=== PATIENT | male | born 1970 | race Caucasian/White ===

== ENCOUNTER 2019-07-25 12:16 | Emergency (ER) | payer OTHER, SELFPAY ==
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
[2019-07-25 12:20] VITALS: BP 136/97; PULSE 87; TEMP 37.1; O2SAT 99
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
[2019-07-25] MEDS: Omnipaque 350 MG/ML 100 ML BTL IV (12:40)
[2019-07-25 12:47] LABS: Abs Immature Grans 0.04 k/cumm (0.0-0.09); Absolute Basophil Count 0.02 k/cumm (0.0-0.2); Absolute Lymphocyte Count 3.09 k/cumm (1.2-3.4); Absolute Monocyte Count 0.61 k/cumm (0.11-0.7); Absolute Neutrophil Count 8.27 k/cumm (1.2-6.7); Basophils % 0.2; Eosinophils % 1.6; HCT 46.6 % (40.0-50.0); HGB 16.6 g/dL (13.5-17.5); Immature Grans % 0.3 %; Lymphocytes % 25.3; Mean Corp. HGB Concentration 35.6 g/dL (32.0-36.0); Mean Corpuscular Hemoglobin 31.4 pg (27.0-33.0); Mean Corpuscular Volume 88.3 fL (80-95); Mean Platelet Volume 8.9 fL (8.0-11.0); Neutrophils % 67.6; Platelet Count 392 x1000/uL (130-400); RBC 5.28 m/cumm (4.50-6.00); White Blood Cell Count 12.23 k/cumm (4.4-10.8)
[2019-07-25 12:54] LABS: ALT 25 U/L (16-63); AST 15 U/L (15-37); Albumin 4.4 g/dL (3.4-5.0); Alkaline Phosphatase 71 U/L (46-116); Anion Gap 10.7 mmol/L (3-11); BUN 9 mg/dL (7-18); Bilirubin, Total 0.7 mg/dL (0.2-1.0); CO2 23.3 mmol/L (21.0-32.0); CREATININE 0.81 mg/dL (0.70-1.30); Calcium 9.4 mg/dL (8.5-10.1); Chloride 105 mmol/L (98-107); ETHANOL BLOOD < 3.0 mg/dL (<3); Glucose 112 mg/dL (74-106); Magnesium 1.8 mg/dL (1.8-2.4); Sodium 139 mmol/L (136-145); Total Protein 7.7 g/dL (6.4-8.2)
[2019-07-25 13:10] LABS: Troponin I < 0.05 ng/Ml (<0.06)
[2019-07-25] MEDS: Normal Saline 1,000 ML 1000 ML IV (13:15)
[2019-07-25] MEDS: Normal Saline - Diluent 50 ML VIAL IV (13:17)
[2019-07-25] MEDS: Normal Saline Flush 10 ML SYR IVP (13:43)
[2019-07-25 14:01] LABS: Bilirubin Negative (Negative); Blood Negative (Negative); Clarity Clear (Clear); Glucose Negative (Negative); Ketones Negative (Negative); Leukocyte Esterase Negative (Negative); Nitrite Negative (Negative); Specific Gravity <= 1.005 (1.005-1.025); Urobilinogen 0.2 EU/dL (Up TO 0.2); pH 5.5 (5-8)
[2019-07-25 14:25] LABS: *AMPHETAMINES SCREEN URINE Negative (Negative); *BARBITURATES SCREEN URINE Negative (Negative); *BENZODIAZEPINES SCREEN URINE Negative (Negative); Cannabinoids THC POSITIVE (Negative); Cocaine Screen,Urine Negative (Negative); METHADONE URINE SCREEN Negative (Negative); OPIATES URINE SCREEN Negative (Negative)
[2019-07-25 14:28] LABS: Tricyclic Antidepressants Negative (Negative)
[2019-07-25 14:32] VITALS: BP 145/94; PULSE 78; RESP 14; O2SAT 99
== END 2019-07-25 14:38 | disposition home or self-care (01) ==
PROVIDERS: Emergency Provider Registered Nurse Emergency
DX: S01.111A Laceration without foreign body of right eyelid and periocular area, initial encounter (principal); S01.21XA Laceration without foreign body of nose, initial encounter; S01.01XA Laceration without foreign body of scalp, initial encounter; V89.2XXA Person injured in unspecified motor-vehicle accident, traffic, initial encounter
CPT/HCPCS: 12013; 74177; 80053; 80307; 96360; 99285; 70450; 71260; 72125; 80320; 81003; 83735; 84484; 85025; 99284; J3490; L0172

== ENCOUNTER 2019-12-11 12:50 | Emergency (ER) | payer OTHER, SELFPAY ==
[2019-12-11] VITALS (23 sets, daily range): BP systolic 110–127; BP diastolic 61–80; PULSE 62–88; RESP 14–22; TEMP 36.7; O2SAT 97–100
--- NOTE | 2019-12-11 13:00 | RT.EKG_ITS ---
APPROVED REPORT Exam: Resting ECG Patient Location: E HR:71 bpm ECG Measurements Heart Rate 71 AXIS MS 156 P 79 QRSd 94 QRS 72 QT 385 T 39 QTc 419 Conclusion Sinus rhythm...normal P axis, V-rate 60- 99
--- NOTE | 2019-12-11 13:30 | DI.RAD_ITS ---
EXAM: XR HIP LT COMPLETE AP PELVIS INDICATION: left hip pain, no trauma. COMPARISON: No exams were available for comparison TECHNIQUE: 2D digital imaging was performed. FINDINGS: No fracture or dislocation is seen. There are no significant degenerative changes. The SI joints a nd pubic symphysis are unremarkable. IMPRESSION: Negative pelvis and left hip. DATA REPOSITORY: RADIATION DOSE DELIVERED:
--- NOTE | 2019-12-11 13:30 | DI.RAD_ITS ---
EXAM: XR CHEST 2V PA LATERAL CLINICAL HISTORY: weight loss, chronic smoker, presyncope TECHNIQUE: 2D digital imaging was performed. COMPARISON: CR CHEST 2 VIEWS PA,LAT from 04/29/2012 FINDINGS: MEDIASTINUM: Normal. HEART: Normal. PULMONARY VASCULATURE: Normal. LUNGS: Clear. PLEURAL SPACE: No pleural effusion or pneumothorax. BONE:Normal. OTHER FINDINGS:Normal. IMPRESSION: No acute pulmonary findings. DATA REPOSITORY: RADIATION DOSE DELIVERED:
[2019-12-11] MEDS: Lactated Ringers 1,000 ML 1000 ML IV (13:31)
[2019-12-11 13:34] LABS: Abs Immature Grans 0.02 10^3/uL (0.0-0.06); Absolute Basophil Count 0.04 10^3/uL (0.0-0.2); Absolute Eosinophil Count 0.05 10^3/uL (0.0-0.7); Absolute Lymphocyte Count 1.49 10^3/uL (1.2-3.4); Absolute Monocyte Count 0.46 10^3/uL (0.1-0.8); Absolute Neutrophil Count 7.51 10^3/uL (1.2-6.7); Basophils % 0.4; Eosinophils % 0.5; HCT 42.6 % (40.0-50.0); HGB 14.3 g/dL (13.5-17.5); Immature Grans % 0.2; Lymphocytes % 15.6; MCH 30.2 pg (27.0-33.0); MCHC 33.6 % (32.0-36.0); MCV 89.9 fL (80-95); Monocytes % 4.8; Neutrophils % 78.5; Nucleated RBC 0 %; Platelet Count 348 10^3/uL (130-400); RBC 4.74 10^6/uL (4.36-5.78); RDW 11.9 % (11.8-14.1); WBC 9.57 10^3/uL (4.4-10.8)
[2019-12-11 13:50] LABS: ALT 16 U/L (16-63); AST 11 U/L (15-37); Albumin 3.8 g/dL (3.4-5.0); Alkaline Phosphatase 63 U/L (46-116); Anion Gap 6.2 mmol/L (3-11); BUN 9 mg/dL (7-18); Bilirubin, Total 0.5 mg/dL (0.2-1.0); CO2 26.8 mmol/L (21.0-32.0); CREATININE 0.86 mg/dL (0.70-1.30); Calcium 9.2 mg/dL (8.5-10.1); Chloride 104 mmol/L (98-107); Glucose 107 mg/dL (74-106); Potassium 4.3 mmol/L (3.5-5.1); Sodium 137 mmol/L (136-145); Total Protein 6.7 g/dL (6.4-8.2); Troponin I < 0.05 ng/mL (<0.06)
--- NOTE | 2019-12-11 14:00 | ED.GENADUL_ITS ---
Discharge Plan Disposition Patient Disposition: HOME Condition: Stable Discharge Details Chief Complaint: Dizzy/Sync Clinical Impression: Pre-syncope Primary Care Provider: None,None ED Provider: Rg Coffman Home Meds and New Rx's Prescriptions: No Action No Known Home Meds RF: 0 Discharge Instructions Instructions: Near Syncope (ED) Additional Instructions: Please drink plenty of fluids to stay hydrated. Please allow for plenty of rest. No exertional activities until cleared. No operating heavy machinery or driving until cleared to do so. Please contact your primary care physician to arrange follow-up. Call on Thursday. Return to the ER for any worsening or new concerning symptoms. Medical Decision Making 1400??49-year-old male, chronic smoker, here after episode of dizziness and presyncope that occurred prior to arrival. Now resolved. Patient also with unintentional 30 pound weight loss over the past few months. He also has had some night sweats and intermittent pain in his left hip. Patient is now asymptomatic and hemodynamically stable. Screening ECG was reviewed interpreted by me: Sinus rhythm 71 bpm, normal axis, no STEMI, nondiagnostic. Plan to check labs to assess for electrolyte abnormalities. Consider malignancy given chronic smoking history and symptoms. Will obtain screening chest x-ray and x-ray of the pelvis and left hip. 1000??patient remains asymptomatic. Ambulated without difficulty or symptoms. Labs reviewed and nondiagnostic. Chest x-ray was reviewed and interpreted by radiology: No acute cardiopulmonary disease. X-ray of the left hip and pelvis reviewed and interpreted by radiology: No acute fracture dislocation. Medical screening exam was performed today. Plan will be for discharge with outpatient follow-up with PCP. Patient understands importance of timely follow-up and to return should have any worsening or new concerning symptoms. HPI General Mode of arrival: ambulatory . Date/Time Provider Initiated Documentation: 12/11/19 13:19 . Limitations to Documentation: no limitations . Information obtained by: patient . HPI Narrative: 49-year-old male presents with chief complaint of lightheadedness. Patient notes sudden onset of near syncope that occurred today prior to arrival. Patient notes he laid down on the floor and continue to have symptoms. He then went to have a bowel movement and noted continued symptoms during that time. Symptoms severe with no modifiers. He has no associated shortness of breath, chest pain, abdominal pain, palpitations, or fever. He does note though an unintentional 30 pound weight loss over the past few months. Patient is a chronic smoker and has been smoking about a pack a day for 30+ years. He is now feeling better with no lightheadedness. Related Data Home Medications Medication Instructions Recorded Confirmed Unknown [No Known Home Meds] 07/25/19 12/11/19 Allergies Allergy/AdvReac Type Severity Reaction Status Date / Time No Known Allergies Allergy Unverified 12/11/19 12:59 General Stated Complaint: Dizzy/Sync PHILIPP: 3 Review of Systems All systems reviewed & are unremarkable except as noted in HPI and below Constitutional Constitutional: Denies fever(s), Denies headache(s), Reports night sweats, Reports weakness (Generalized) and Reports weight loss ENT Ears, Nose, Mouth, and Throat: Denies headache(s) Cardiovascular Cardiovascular: Denies dyspnea Respiratory Respiratory: Denies cough and Denies dyspnea Musculoskeletal Musculoskeletal: Reports arthralgias (Left hip intermittent) Neurologic Neurologic: Denies headache(s) and Reports weakness (Generalized) [facility] Medical History Smoker (Acute) Social History Smoking/Tobacco Use Status: Current every day Tobacco Type: cigarettes Alcohol Intake: current Alcohol Intake frequency: a few times a week Alcohol type: hard liquor Drug use: Occasionally Substance use type: marijuana Do you feel safe at home: Yes Do you feel safe in your relationship?: Yes Exam Const General: cooperative and no acute distress HENMT Head: normocephalic and atraumatic Mouth: moist mucous membranes Eyes Sclera: normal sclerae Neck Neck: no lymphadenopathy, trachea midline and supple Resp Auscultation: clear to auscultation bilaterally, no rales, no rhonchi and no wheezes Cardio Rate: regular rate and not tachycardic Rhythm: regular rhythm GI Palpation: soft, not firm, no guarding, no masses, not rigid and nontender Back/Spine/Pelvis Back: No erythema Cervical Spine: No cervical spinal tenderness Thoracic/Lumbar Spine: No thoracic spinal tenderness and No lumbar spinal tenderness Skin General skin exam: no rashes or lesions noted Neuro General: patient alert, patient awake and tone normal Extrem General: no edema Psych Appearance: grossly normal Mental Status: mental status grossly normal Course Vital Signs Vital signs: Vital Signs Temperature 36.7 C 12/11/19 12:54 Pulse 72 12/11/19 12:54 Respiratory Rate 20 12/11/19 12:54 Blood Pressure 116/76 12/11/19 12:54 Pulse Oximetry 99 12/11/19 12:54 Temperature 36.7 C 12/11/19 12:54 Temperature Source Skin 12/11/19 12:54 Pulse 68 12/11/19 13:00 Pulse 76 12/11/19 13:10 Respiratory Rate 16 12/11/19 13:10 Respiratory Effort Non-Labored 12/11/19 13:00 Respiratory Depth Normal 12/11/19 13:00 Respiratory Pattern Normal 12/11/19 13:00 Blood Pressure 112/73 12/11/19 13:00 Blood Pressure Mean 82 12/11/19 13:00 Blood Pressure Position Sitting 12/11/19 12:54 Pulse Oximetry 99 12/11/19 13:01 Oxygen Delivery Method Room Air 12/11/19 12:54 Oxygen Flow Rate 0 12/11/19 12:54 Pain Level 0 12/11/19 12:54 Lab/Test Results Lab/Test Results: Laboratory Tests Range/Units 12/11/19 12/11/19 13:25 13:25 WBC (4.4-10.8) 10^3/uL 9.57 RBC (4.36-5.78) 10^6/uL 4.74 Hgb (13.5-17.5) g/dL 14.3 Hct (40.0-50.0) % 42.6 MCV (80-95) fL 89.9 MCH (27.0-33.0) pg 30.2 MCHC (32.0-36.0) % 33.6 RDW (11.8-14.1) % 11.9 Plt Count (130-400) 10^3/uL 348 MPV (8.0-11.0) fL 9.0 Immature Gran % 0.2 Neutrophils % 78.5 Lymphocytes % 15.6 Monocytes % 4.8 Eosinophils % 0.5 Basophils % 0.4 Nucleated RBC % % 0 Absolute Neutrophils (1.2-6.7) 10^3/uL 7.51 H Absolute Lymphocytes (1.2-3.4) 10^3/uL 1.49 Absolute Monocytes (0.1-0.8) 10^3/uL 0.46 Absolute Eosinophils (0.0-0.7) 10^3/uL 0.05 Absolute Basophils (0.0-0.2) 10^3/uL 0.04 Sodium (136-145) mmol/L 137 Potassium (3.5-5.1) mmol/L 4.3 Chloride (98-107) mmol/L 104 Carbon Dioxide (21.0-32.0) mmol/L 26.8 Anion Gap (3-11) mmol/L 6.2 BUN (7-18) mg/dL 9 Creatinine (0.70-1.30) mg/dL 0.86 Estimated GFR/1.73 m2 (mL/min/1.73m2) >= 60.00 Glucose (74-106) mg/dL 107 H Calcium (8.5-10.1) mg/dL 9.2 Total Bilirubin (0.2-1.0) mg/dL 0.5 AST (15-37) U/L 11 L ALT (16-63) U/L 16 Alkaline Phosphatase (46-116) U/L 63 Troponin I (<0.06) ng/mL < 0.05 Total Protein (6.4-8.2) g/dL 6.7 Albumin (3.4-5.0) g/dL 3.8
--- NOTE | 2019-12-11 14:18 | DI.VRAD_ITS ---
PROCEDURE INFORMATION: Exam: XR Chest, 2 Views Exam date and time: 12/11/2019 2:03 PM Age: 49 years old Clinical indication: Other: Dizzy spell. TECHNIQUE: Imaging protocol: XR of the chest Views: 2 views. COMPARISON: CT CHEST/ABD/PEL W 07/25/2019 12:49 PM FINDINGS: Lungs: There is a lucency in right apical lung which is correlated with bulla on previous CT exam. No pneumothorax. There is no pleural effusion. There is hyperinflation of lungs which is non-specific and could be related to patient's deep inhalation. Pleural space: See Lungs finding. Heart/Mediastinum: Unremarkable. No cardiomegaly. Bones/joints: Unremarkable. IMPRESSION: No acute cardiopulmonary abnormality. Dictated and Authenticated by: Santos Acuna MD. Ordering:LAUREN Diez MD
--- NOTE | 2019-12-11 14:21 | DI.VRAD_ITS ---
PROCEDURE INFORMATION: Exam: XR Left Hip with Pelvis when Performed Exam date and time: 12/11/2019 2:09 PM Age: 49 years old Clinical indication: Hip pain; Left hip TECHNIQUE: Imaging protocol: XR Left hip with pelvis when performed. Views: 2 or 3 views. COMPARISON: CT CHEST/ABD/PEL W 07/25/2019 12:49 PM FINDINGS: Bones/joints: No acute fracture or dislocation. There is mild facet osteoarthrosis in left L5-S1 . Soft tissues: Unremarkable. IMPRESSION: No acute fracture or dislocation. Dictated and Authenticated by: Santos Acuna MD. Ordering:LAUREN Diez MD
--- NOTE | 2019-12-11 15:04 | NUR.NOTE ---
Nursing Note: Referral to establish care and follow up given to Care Management. Harriett Louise
== END 2019-12-11 15:05 | disposition home or self-care (01) ==
PROVIDERS: Emergency Provider Student in an Organized Health Care Education/Training Program
DX: R55 Syncope and collapse (principal); M25.552 Pain in left hip; R63.4 Abnormal weight loss
CPT/HCPCS: 80053; 93005; 96360; 99284; 71046; 73502; 84484; 85025; 93010

== ENCOUNTER 2020-12-19 15:25 | Emergency (ER) | payer SELFPAY | END 2020-12-19 16:49 | PROVIDERS: Emergency Provider Physician Assistant; PCP Internal Medicine | DX: Z53.21 Procedure and treatment not carried out due to patient leaving prior to being seen by health care provider (principal) ==

== ENCOUNTER 2024-12-19 08:19 | Emergency (ER) | payer MEDICAID, SELFPAY ==
[2024-12-19 08:23] VITALS: BP 175/119; PULSE 89; RESP 20; TEMP 36.4; O2SAT 99
--- NOTE | 2024-12-19 08:36 | DI.CT_ITS ---
Exam(s) CT LOWER EXTREMITY RT W EXAM: CT LOWER EXTREMITY RT W CLINICAL HISTORY: groing pain down to knee right TECHNIQUE: Imaging Protocol: Axial computed tomography images with coronal and sagittal reformatted images were created and reviewed CONTRAST MATERIAL: Intravenous: Omnipaque 350 Contrast volume:100 mL Oral: No COMPARISON: CR,XR XR HIP LT COMPLETE AP PELVIS from 12/11/2019 FINDINGS: Images were obtained from the right iliac crest to the right knee. PELVIS: Abdominal Aorta: Abdominal portion non-dilated. Atherosclerotic calcification is present. The right lower extremity arterial circulation was evaluated from the level of the aortic bifurcation to just distal to the popliteal artery. No occlusion is present. There is no atherosclerotic calcification distal to the common iliac artery.. Bowel: The visualized bowel is unremarkable. There is no evidence of obstruction or bowel wall thickening. A normal appendix is visualized. Peritoneal Cavity: No ascites, collection or mesenteric inflammatory response. Soft Tissues: The musculature in the right lower extremity appears grossly unremarkable. There is no soft tissue mass or abnormal fluid collection to suggest an abscess. Bladder: Symmetric distention, no gross wall thickening. Reproductive Organs: Unremarkable as visualized. Lymph Nodes: Within normal limits. Bones: Within normal limits. IMPRESSION: Unremarkable examination. If there is continued concern for soft tissue injury/muscle injury, MRI is recommended for evaluation. RADIATION DOSE DELIVERED: 950.89mGy.cm Total DLP 950.89mGy.cm Total DLP DATA REPOSITORY: All CT scans at this facility are submitted to the National Radiology Data Registry (NRDR) Dose Index Registry (DIR) with the [employer] (ACR). RADIATION OPTIMIZATION: All CT scans at this facility use at least one of these dose optimization techniques: automated exposure control; mA and/or kV adjustment per patient size (includes targeted exams where dose is matched to clinical indication); or iterative reconstruction.
--- NOTE | 2024-12-19 08:38 | W.ED.GENAD ---
Discharge Plan Disposition Patient Disposition: Home Discharge Details Clinical Impression: Strain of adductor muscle of thigh Primary Care Provider: Unknown,Unknown ED Provider: Charleen Pedraza Home Meds and New Rx's Prescriptions: New diazepam [Valium] 5 mg tablet 5 mg PO BID PRNQty: 10 0RF Discharge Instructions Instructions: Groin Strain (DC) Additional Instructions: You may use Lidoderm patches [id number], its 12 hours on 12 hours off, please remove the patch we placed in 12 hours You may take the Valium sparingly, do not operate your vehicle while taking this medication Follow-up with physical therapy and orthopedics as needed it sounds like referrals to these 2 specialties have been placed You may apply ice or heat whatever feels better 2 hours after application Take Motrin 600 mg every 8 hours with food and alternate with Tylenol 500 mg every 4 hours do not exceed 3 g of Tylenol daily You may use walker with ambulation I have placed you on a list to establish care with a primary care physician Please return earlier should you have fever, chills, or with any new or worsening complaints Discharge Data Discharge Date/Time-TO BE ENTERED AT DEPARTURE: 12/19/24 12:55 HPI General Date/Time Provider Initiated Documentation: 12/19/24 08:30. HPI Narrative: This 54-year-old male presents with right groin strain. States he has a history of groin strain in the past 5 years ago he had an injury states intermittently he reinjures the area. He denies any difficulty urinating or fevers or chills. He states he was moving some items at work 2 weeks ago when he felt another strain in the right groin and presented to urgent care was referred to Ortho and has been performing supportive care but now pain is in worsening and he presents presents for assessment. History of drug abuse and prefers to avoid opiates as much as possible. Denies any urinary symptoms denies any abdominal pain denies any chest pain or shortness of breath. States the pain is worsened with movement and describes the pain as being in the right groin area radiating down to his knee worse with sitting or extending his leg. Denies any sensation change or paresthesias to his feet. Denies fever or chills. Related Data Home Medications ?Medication ?Instructions ?Recorded ?Confirmed diazepam 5 mg tablet (Valium) 5 mg PO BID PRN #10 tabs 12/19/24 Previous Rx's ?Medication ?Instructions ?Recorded diazepam 5 mg tablet (Valium) 5 mg PO BID PRN #10 tabs 12/19/24 Allergies Allergy/AdvReac Type Severity Reaction Status Date / Time No Known Allergies Allergy Verified 12/19/24 08:27 General Stated Complaint: Orthopedic PHILIPP: 3 Exam Narrative Exam Narrative: 54-year-old male in acute distress, pain in his suprapubic region no testicular tenderness, right adductor muscle tenderness on exam and pain elicited with resisted adduction really with any movement of his hip patient has exacerbated discomfort. His sensation and is intact all 4 extremities, and his distal pulses are intact all 4 extremities. He has no rashes or lesions. He has some tenderness to the right gluteal region over the sacroiliac notch he has no abdominal bruit or pulsatile mass no actual abdominal tenderness. No rebound or guarding no CVA tenderness Course Vital Signs Vital signs: Vital Signs Temperature 36.4 C L 12/19/24 08:23 Pulse 89 12/19/24 08:23 Respiratory Rate 20 12/19/24 08:23 Blood Pressure 175/119 H 12/19/24 08:23 Pulse Oximetry 99 12/19/24 08:23 Temperature 36.4 C L 12/19/24 08:23 Temperature Source Oral 12/19/24 08:23 Pulse 89 12/19/24 08:23 Respiratory Rate 20 12/19/24 08:23 Blood Pressure 175/119 H 12/19/24 08:23 Blood Pressure Position Supine 12/19/24 08:23 Pulse Oximetry 99 12/19/24 08:23 Oxygen Delivery Method Room Air 12/19/24 08:23 Oxygen Flow Rate 0 12/19/24 08:23 Pain Level 10 12/19/24 08:23 Medical Decision Making Results: CT right lower extremity does not show evidence of acute abnormality, diagnostic labs including CBC CMP reassuring, urinalysis with scant blood, patient encouraged to follow-up regarding this in 1 to 2 weeks. I also reviewed patient's CT abdomen pelvis from 2 years prior without any evidence of aneurysmal dilatation of abdominal aorta Assessment and plan: Patient presenting with history of adductor strain now with worsening pain. CT was about utilized for further evaluation given level of pain upon arrival. He was given 10 mg of Valium through the IV 5 mg on 2 separate occasion and patient feels significant improvement in symptoms. He denies any strength or sensation change. CT per radiology interpretation does not show acute abnormality specifically there is no evidence of infectious etiology patient denies any recent illicit substance use. Neurovascularly intact. he is ambulatory with a walker with antalgic although steady gait. He was given a single dose of 4 mg of Decadron IV. He has a referral to both orthopedics and PT which is quite appropriate. Lidoderm patch was applied and patient was given several doses of Valium for home risk of addiction reviewed. He was discharged home in stable condition with stable vitals recheck with primary care physician this week. 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) Smoker (Acute) 1 ppd Medical History Smoker 1 ppd Social History Smoking/Tobacco Use Status: Current every day Tobacco Type: cigarettes Smoking risk assessment performed?: Yes Alcohol Intake: current Alcohol Intake frequency: 0-2 drinks per day Alcohol type: hard liquor Drug use: Occasionally Substance use type: marijuana Household members: spouse Housing: house Number of Children: 3 Communication Needs: None current occupation: unemployed Current gender identity: male What is your relationship status?: Panel score (0-1 are the most socially isolated patients): 1 What type of physical activity do you participate in: none Seatbelt use: sometimes Do you feel safe at home: Yes Do you feel safe in your relationship?: Yes
[2024-12-19] MEDS: ACETAMINOPHEN 500 MG/50 ML BAG 200 MG IVPB (08:50)
[2024-12-19 08:51] LABS: Abs Immature Grans 0.01 10^3/uL (0.0-0.06); HCT 48.6 % (40.0-50.0); HGB 17.1 g/dL (13.5-17.5); Immature Grans % 0.1 %; MCH 31.7 pg (27.0-33.0); MCHC 35.2 % (32.0-36.0); MCV 90 fL (80-95); MPV 8.5 fL (8.0-11.0); Platelet Count 374 10^3/uL (130-400); RBC 5.40 10^6/uL (4.36-5.78); RDW 12.0 % (11.8-14.1); RDW-SD 39.2 fL; WBC 9.93 10^3/uL (4.4-10.8)
[2024-12-19] MEDS: diazePAM 10 MG/2 ML SYR 5 MG IVP ×2 (08:52→10:40)
[2024-12-19 09:15] LABS: Creatine Kinase 147 U/L (39-308)
[2024-12-19 09:18] LABS: ALT 47 U/L (16-63); AST 36 U/L (15-37); Albumin 4.3 g/dL (3.4-5.0); Alkaline Phosphatase 75 U/L (46-116); Anion Gap 15.3 mmol/L (3-11); BUN 13 mg/dL (7-18); Bilirubin, Total 1.6 mg/dL (0.2-1.0); CO2 21.7 mmol/L (21.0-32.0); Calcium 9.5 mg/dL (8.5-10.1); Chloride 104 mmol/L (98-107); Estimated GFR 102.76 (mL/min/1.73m2); Glucose 125 mg/dL (74-106); Potassium 3.8 mmol/L (3.5-5.1); Sodium 141 mmol/L (136-145); Total Protein 7.5 g/dL (6.4-8.2)
[2024-12-19] MEDS: Normal Saline - Diluent 50 ML VIAL IJ (09:59)
[2024-12-19] MEDS: Normal Saline Flush 10 ML SYR IVP (09:59)
[2024-12-19] MEDS: Omnipaque 350 MG/ML 100 ML BTL IJ (09:59)
[2024-12-19] MEDS: Normal Saline 500 ML IV (10:35)
[2024-12-19 11:15] LABS: Glucose Negative (Negative)
[2024-12-19 11:30] LABS: C & S Indicated? No; RBC 0-2 HPF (0-2); WBC Negative HPF (0-5)
[2024-12-19] MEDS: Dexamethasone 4 MG/ML VIAL IVP (12:23)
[2024-12-19] MEDS: Lidocaine 5% Patch 1 PATCH TP (12:24)
[2024-12-19 12:53] VITALS: BP 168/92; PULSE 68; RESP 16; TEMP 36.6; O2SAT 100
== END 2024-12-19 12:55 | disposition home or self-care (01) ==
PROVIDERS: Emergency Provider Physician Assistant
DX: S76.211A Strain of adductor muscle, fascia and tendon of right thigh, initial encounter (principal); F17.210 Nicotine dependence, cigarettes, uncomplicated; X50.9XXA Other and unspecified overexertion or strenuous movements or postures, initial encounter; Y93.89 Activity, other specified; Y92.69 Other specified industrial and construction area as the place of occurrence of the external cause; Y99.0 Civilian activity done for income or pay
CPT/HCPCS: 80053; 82550; 96361; 96365; 96375; 96376; 99285; 73701; 81003; 81015; 85025; J0131; J1100; J3360; J3490

== ENCOUNTER 2024-12-21 14:44 | Emergency (ER) | payer MEDICAID, SELFPAY ==
[2024-12-21 14:44] VITALS: BP 140/89; PULSE 73; RESP 24; TEMP 36.6; O2SAT 95
--- NOTE | 2024-12-21 15:15 | DI.CT_ITS ---
Exam(s) CT ABD AORTA CTA W RUNOFF EXAM: CT ABD AORTA CTA W RUNOFF CLINICAL HISTORY: worsening right sided abdomen/back/right leg pain. TECHNIQUE: Imaging Protocol: Axial CT angiography was performed with multi- slice acquisition and multi-planar and/or 3D reconstructions. CONTRAST MATERIAL: Intravenous: Omnipaque 350 Contrast volume:150 mL Oral: No COMPARISON: CT CT CHEST/ABD/PEL W from 07/25/[address] LOWER EXTREMITY RT W from 12/19/2024 FINDINGS: Vascular Structures: Abdomen and pelvis: Celiac Brutus/SMA: No evidence of occlusion or significant stenosis. Renal Arteries: No evidence of occlusion or significant stenosis. Aorta: No aneurysm, occlusion or significant stenosis. No dissection. Mild atherosclerotic calcification is present. Iliac Arteries: No evidence of occlusion or significant stenosis. There is mild atherosclerotic calcification seen in the common iliac arteries bilaterally without significant stenosis. Lower extremities: Right: Femoral: No evidence of occlusion or significant stenosis. Deep Femoral Artery: No evidence of occlusion or significant stenosis. Popliteal: No evidence of occlusion or significant stenosis. Knee Trifurcation: No evidence of occlusion or significant stenosis. Infrapopliteal arteries: No evidence of occlusion or significant stenosis. Left: Femoral: No evidence of occlusion or significant stenosis. Deep femoral artery: No evidence of occlusion or significant stenosis. Popliteal: No evidence ofocclusion or significant stenosis. Knee Trifurcation: No evidence of occlusion or significant stenosis. Infrapopliteal arteries: No evidence of occlusion or significant stenosis. Soft Tissues: Lung bases: Clear. Liver: There is diffuse decreased attenuation of the liver suggesting fatty infiltration. No measurable mass. Portal, splenic and superior mesenteric veins: Unremarkable. Gallbladder and biliary tract: No radiodense calculus or dilation. Pancreas: Normal density, no abnormal calcifications or inflammatory process. Spleen: Normal. Kidneys: Normal size, contour and axis. No radiodense stones or obstructive uropathy. No masses seen. Adrenal glands: No masses seen. Lymph nodes: Unremarkable. Bladder: Symmetric distention, no gross wall thickening. Reproductive organs: Unremarkable. Bowel: No obstruction or bowel wall thickening. The appendix is unremarkable. Peritoneal cavity: No ascites, collection or mesenteric inflammatory response. No free air. Bones: Within normal limits for the patient's age. No large disc herniation is seen in the lumbar spine, however, if there are radicular concerns, an MRI should be obtained for further evaluation. No lytic or sclerotic lesions are seen. Soft tissues: Unremarkable. IMPRESSION: 1. Normal CT Angiogram of the Abdomen, Pelvis and Lower Extremities. 2. No acute abdominal or pelvic process. 3. No obvious soft tissue mass or enhancing lesion is seen in the right lower extremity. 4. Findings were discussed with Dr. Sherman at 5:20 p.m. on 12/21/2024. RADIATION DOSE DELIVERED: 775.06mGy.cm Total DLP 775.06mGy.cm Total DLP DATA REPOSITORY: All CT scans at this facility are submitted to the National Radiology Data Registry (NRDR) Dose Index Registry (DIR) with the [employer] (ACR). RADIATION OPTIMIZATION: All CT scans at this facility use at least one of these dose optimization techniques: automated exposure control; mA and/or kV adjustment per patient size (includes targeted exams where dose is matched to clinical indication); or iterative reconstruction.
--- NOTE | 2024-12-21 15:23 | ED.GENADUL_ITS ---
Discharge Plan Disposition Patient Disposition: Home Condition: Stable Discharge Details Clinical Impression: Low back pain radiating to right leg, Leg pain, right Primary Care Provider: Unknown,Unknown ED Provider: Layo Sherman Home Meds and New Rx's Prescriptions: New cyclobenzaprine 10 mg tablet 10 mg PO TID PRNQty: 20 0RF gabapentin 300 mg capsule 300 mg PO TID Qty: 30 0RF Discontinued diazepam [Valium] 5 mg tablet 5 mg PO BID PRNQty: 10 0RF Discharge Instructions Additional Instructions: Your blood work and CAT scan did not show any concerning findings at this time. Follow-up with your primary care provider and also physical therapy. You can take 1000 mg of acetaminophen and 600 mg of ibuprofen every 6 hours as needed in addition to the as needed cyclobenzaprine and also the gabapentin. If you feel more ill or have new symptoms such as persistent vomiting return to the emergency department for reevaluation. HPI General Date/Time Provider Initiated Documentation: 12/21/24 14:52 . Limitations to Documentation: no limitations . Information obtained by: patient . History of Present Illness 54 year old M presents to the emergency department with the chief complaint of right thigh and hip pain and groin pain, described as moderate, Patient started experiencing this week(s) (1) and it has been constant. No relieving factors improve symptom(s), No exacerbating factors reported . Patient notes no other symptoms.; denies chest pain, fever/chills, nausea/vomiting and shortness of breath. Patient did receive the following treatments prior to arrival, none Related Data Home Medications ?Medication ?Instructions ?Recorded ?Confirmed cyclobenzaprine 10 mg tablet 10 mg PO TID PRN #20 tabs 12/21/24 gabapentin 300 mg capsule 300 mg PO TID #30 caps 12/21 Previous Rx's ?Medication ?Instructions ?Recorded cyclobenzaprine 10 mg tablet 10 mg PO TID PRN #20 tabs 12/21/24 gabapentin 300 mg capsule 300 mg PO TID #30 caps 12/21 Allergies Allergy/AdvReac Type Severity Reaction Status Date / Time No Known Allergies Allergy Verified 12/19/24 08:27 General Stated Complaint: Orthopedic PHILIPP: 3 Review of Systems All systems reviewed & are unremarkable except as noted in HPI and below Constitutional Constitutional: Denies chills, Denies fever(s) and Denies weakness Cardiovascular Cardiovascular: Denies chest pain and Denies dyspnea Respiratory Respiratory: Denies cough and Denies dyspnea Gastrointestinal Gastrointestinal: Denies abdominal pain, Denies nausea and Denies vomiting Musculoskeletal Musculoskeletal: Reports back pain and Reports muscle cramps Neurologic Neurologic: Denies weakness Psychiatric Psychiatric: Denies depression Exam Const General: no acute distress Orientation: alert HENMT Head: normal to inspection Ears: external ears normal General nose exam: external nose normal Mouth: moist mucous membranes Eyes General: appearance normal, both eyes and all related structures Neck Neck: normal visual inspection Resp Effort & Inspection: normal respiratory effort and able to speak in complete sentences Cardio Rate: regular rate GI Palpation: soft and tender Back/Spine/Pelvis Back: no CVA tenderness Skin General skin exam: no rashes or lesions noted Neuro General: patient alert and patient oriented x3 Extrem General: normal to inspection Psych Mental Status: mental status grossly normal Course Vital Signs Vital signs: Vital Signs Temperature 36.6 C 12/21/24 14:44 Pulse 73 12/21/24 14:44 Respiratory Rate 12/21/24 14:44 Blood Pressure 140/89 12/21/24 14:44 Pulse Oximetry 95 12/21/24 14:44 Temperature 36.6 C 12/21/24 14:44 Temperature Source Temporal Artery Scan 12/21/24 14:44 Pulse 73 12/21/24 14:44 Respiratory Rate 12/21/24 14:44 Blood Pressure 140/89 12/21/24 14:44 Blood Pressure Position Sitting 12/21/24 14:44 Pulse Oximetry 95 12/21/24 14:44 Oxygen Delivery Method Room Air 12/21/24 14:44 Oxygen Flow Rate 0 12/21/24 14:44 Pain Level 10 12/21/24 14:44 Medical Decision Making 54-year-old male with a history of smoking, who comes in with continued right groin and leg pain and also back pain for over a week. Denies any falls or known injuries. Has been seen in [facility] care and was seen in the ER 2 days ago and had a CT of his right lower extremity which did not show any acute findings. He says that despite that he still has pain and came back for hakeem luation. He localized the pain to the right lower back, the right groin and also right thigh. There is no visible swelling of the right leg compared to the left and there is no discoloration. He has intact distal sensation and pulses. No saddle anesthesia. The back pain is in the right lower back without visible palpable deformities. Denies any drug use. I suspect this could be a muscle spasm versus musculoskeletal back pain but given continued symptoms I will proceed with CBC, CMP, inflammatory markers, CPK to screen for myositis and also obtain a CTA of the aorta with runoffs to evaluate for possible abnormalities of the aorta including dissection. He has no findings on exam or history to suggest entities such as cauda equina or spinal epidural abscess. Labs and imaging on my read and radiology read is negative for acute findings. Patient is stable and feels better. Suspect musculoskeletal back pain versus thigh pain. Labs reassuring. He will follow-up with his PCP and PT and return precautions given Differential Diagnosis Differential Diagnosis: muscle spasm, dissection, myositis Medical Records Medical records reviewed: Yes I reviewed the patient's medical records. 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) Smoker (Acute) 1 ppd Medical History Smoker 1 ppd Social History Smoking/Tobacco Use Status: Current every day Tobacco Type: cigarettes Smoking risk assessment performed?: Yes Alcohol Intake: current Alcohol Intake frequency: 0-2 drinks per day Alcohol type: hard liquor Drug use: Occasionally Substance use type: marijuana Household members: spouse Housing: house Number of Children: 3 Communication Needs: None current occupation: unemployed Current gender identity: male What is your relationship status?: Panel score (0-1 are the most socially isolated patients): 1 What type of physical activity do you participate in: none Seatbelt use: sometimes Do you feel safe at home: Yes Do you feel safe in your relationship?: Yes
[2024-12-21] MEDS: LORazepam 20 MG/10 ML VIAL IVP (16:29)
[2024-12-21] MEDS: Gabapentin 300 MG CAP PO (16:29)
[2024-12-21] MEDS: Ketorolac 15 MG/ML VIAL IVP (16:29)
[2024-12-21 16:34] LABS: Abs Immature Grans 0.04 10^3/uL (0.0-0.06); HCT 48.0 % (40.0-50.0); HGB 16.7 g/dL (13.5-17.5); Immature Grans % 0.4 %; MCH 31.9 pg (27.0-33.0); MCHC 34.8 % (32.0-36.0); MCV 92 fL (80-95); MPV 8.6 fL (8.0-11.0); Platelet Count 324 10^3/uL (130-400); RBC 5.23 10^6/uL (4.36-5.78); RDW 12.0 % (11.8-14.1); RDW-SD 40.6 fL; WBC 9.70 10^3/uL (4.4-10.8)
[2024-12-21] MEDS: Normal Saline 1,000 ML 1000 ML IV (16:36)
[2024-12-21 16:37] LABS: ESR < 1 mm/hr (0-20)
[2024-12-21] MEDS: Omnipaque 350 MG/ML 100 ML BTL IJ (16:51)
[2024-12-21 16:52] LABS: ALT 39 U/L (16-63); AST 22 U/L (15-37); Albumin 4.2 g/dL (3.4-5.0); Alkaline Phosphatase 65 U/L (46-116); Anion Gap 8.1 mmol/L (3-11); BUN 17 mg/dL (7-18); Bilirubin, Total 1.2 mg/dL (0.2-1.0); CO2 28.9 mmol/L (21.0-32.0); Calcium 9.2 mg/dL (8.5-10.1); Chloride 105 mmol/L (98-107); Creatine Kinase 110 U/L (39-308); Estimated GFR 102.76 (mL/min/1.73m2); Glucose 121 mg/dL (74-106); Magnesium 1.8 mg/dL (1.8-2.4); Potassium 3.5 mmol/L (3.5-5.1); Sodium 142 mmol/L (136-145); Total Protein 7.3 g/dL (6.4-8.2)
[2024-12-21] MEDS: Omnipaque 350 MG/ML 50 ML BTL IJ (16:52)
[2024-12-21] MEDS: Normal Saline - Diluent 50 ML VIAL IJ ×2 (16:53)
[2024-12-21] MEDS: Normal Saline Flush 10 ML SYR IVP (16:53)
[2024-12-21 16:56] LABS: C-Reactive Protein < 0.50 mg/dL (<or=0.5)
[2024-12-21 18:26] VITALS: BP 133/70; PULSE 72; RESP 16; TEMP 36.7; O2SAT 97
== END 2024-12-21 18:26 | disposition home or self-care (01) ==
PROVIDERS: Emergency Provider Emergency Medicine
DX: M79.651 Pain in right thigh (principal); M79.661 Pain in right lower leg; M54.50 Low back pain, unspecified; F17.210 Nicotine dependence, cigarettes, uncomplicated
CPT/HCPCS: 36415; 75635; 80053; 82550; 85652; 99285; 83735; 85025; 86140; 99284; J1885; J2060; J3490; Q9967